=== PATIENT | male | born 1990 | race Hispanic/Latino ===

== ENCOUNTER 2021-11-18 01:46 | Emergency (ER) | payer OTHER ==
[~2021-11-18] VITALS: Ht 165.1 cm; Wt 117.9 kg
[2021-11-18] MEDS ORDERED: TRAMADOL HCL 50 MG TAB PO STA (02:14)
[2021-11-18] MEDS ORDERED: ULTRAM 50MG50 MG PO (03:51)
== END 2021-11-18 06:20 | disposition home or self-care (01) ==
LOC: ER 02:00
DX: M25.562 Pain in left knee (principal); Y93.01 Activity, walking, marching and hiking
CPT/HCPCS: 99283